=== PATIENT | female | born 1950 | race Caucasian/White ===

== ENCOUNTER → 2018-03-25 | Outpatient (CLI) | payer MEDICARE, OTHER | LOC: COL.RAD 07:39 | DX: K21.9 Gastro-esophageal reflux disease without esophagitis (principal) | CPT/HCPCS: A9541 ==

== ENCOUNTER 2018-04-30 11:31 | Observation (INO) | payer MEDICARE, OTHER ==
[2018-04-30] VITALS (9 sets, daily range): BP systolic 117–151; BP diastolic 65–82; PULSE 84–104; TEMP 97.9
[~2018-04-30] VITALS: Ht 160 cm; Wt 74.2 kg
[2018-04-30] MEDS ORDERED: REGLAN 10MG10 MG/TAB PO (13:08)
[2018-04-30] MEDS ORDERED: PROTONIX 40MG T40 MG PO (13:09)
[2018-04-30] MEDS ORDERED: SINGULAIR 110 MG/TAB PO (13:10)
[2018-04-30] MEDS ORDERED: ULTRAM 50MG TAB50 MG PO (13:11)
[2018-04-30] MEDS ORDERED: ZITHROMAX 250M250 MG PO (13:13)
[2018-04-30] MEDS ORDERED: PRINIVIL40 MG PO (13:13)
[2018-04-30] MEDS ORDERED: GLUCOPHAGE500 MG/TAB PO (13:15)
[2018-04-30] MEDS ORDERED: NORVASC 10MG10 MG PO (13:15)
[2018-04-30] MEDS ORDERED: NEURONTIN300 MG/CAP PO (13:19)
[2018-04-30] MEDS ORDERED: ZOLOFT 25MG25 MG PO (13:20)
[2018-04-30] MEDS ORDERED: GLUCOTROL XL2.5 MG PO (13:23)
[2018-04-30] MEDS ORDERED: SYSTANE BALANCE10 M1 OP (13:24)
[2018-04-30 13:51] LABS: ARTERIAL BLD GAS O2 SATURATION 98.4 % (92-100); ARTERIAL BLD GAS TCO2 CT 27.8; ARTERIAL BLOOD GAS BASE EXCESS 1.1 (-2-2); ARTERIAL BLOOD GAS HCO3 26.4 meq/L (22-26); ARTERIAL BLOOD GAS PCO2 44.8 mmHg (35-45); ARTERIAL BLOOD GAS PO2 148.2 mmHg (80-100); ARTERIAL BLOOD GAS pH 7.39 (7.35-7.45)
[2018-04-30 17:16] LABS: ARTERIAL BLD GAS O2 SATURATION 92.7 % (92-100); ARTERIAL BLD GAS TCO2 CT 23.9; ARTERIAL BLOOD GAS HCO3 22.4 meq/L (22-26); ARTERIAL BLOOD GAS PO2 72.9 mmHg (80-100); ARTERIAL BLOOD GAS pH 7.26 (7.35-7.45)
[2018-04-30 18:54] LABS: ARTERIAL BLOOD GAS BASE EXCESS -4.3 (-2-2); ARTERIAL BLOOD GAS pH 7.33 (7.35-7.45)
[2018-04-30 18:55] LABS: ARTERIAL BLD GAS TCO2 CT 23
[2018-05-01] VITALS (8 sets, daily range): BP systolic 122–163; BP diastolic 61–79; PULSE 74–104; TEMP 97.7–98.7
[2018-05-02 04:07] VITALS: BP 121/73; PULSE 84; TEMP 97.8
[2018-05-02 08:33] VITALS: BP 153/88; PULSE 88; TEMP 97.7
[2018-05-02 12:57] VITALS: BP 134/80; PULSE 86; TEMP 98.5
== END 2018-05-02 15:17 | disposition home or self-care (01) ==
LOC: SDCO 11:31 → SURG 17:41 → SDCO 05-01 16:29 → SURG 05-01 16:30
PROVIDERS: Nurse Anesthetist, Certified Registered; Surgery
DX: K21.9 Gastro-esophageal reflux disease without esophagitis (principal); J84.10 Pulmonary fibrosis, unspecified; K44.9 Diaphragmatic hernia without obstruction or gangrene; R06.89 Other abnormalities of breathing; E11.9 Type 2 diabetes mellitus without complications; Z79.84 Long term (current) use of oral hypoglycemic drugs; Z99.81 Dependence on supplemental oxygen; E66.9 Obesity, unspecified; Z79.899 Other long term (current) drug therapy; I10 Essential (primary) hypertension; Z86.73 Personal history of transient ischemic attack (TIA), and cerebral infarction without residual deficits; F41.0 Panic disorder [episodic paroxysmal anxiety]; M19.90 Unspecified osteoarthritis, unspecified site
CPT/HCPCS: OP; A9284; C1713; C1781; G0378; J0690; J1100; J1815; J2405; J2704; J3010; J7030